=== PATIENT | female | born 1980 | race Caucasian/White ===

== ENCOUNTER 2023-09-06 10:48 | Emergency (ER) | payer OTHER, SELFPAY ==
--- NOTE | ~2023-09-06 | US_ITS ---
EXAMINATION: US pelvic complete w TV DATE: 09/06/2023 17:33 INDICATION: pelvic pain left sided, concerns possible torsion? TECHNIQUE: Multiple transabdominal and endovaginal sonographic images of the pelvis were obtained. COMPARISON: None. FINDINGS: Uterus: 13.5 x 8.1 x 8.5. cm. 5.3 cm uterine fibroid Endometrial complex measures 6 mm. Right Ovary: 2.2 x 1.6 x 1.8 cm. Vascular flow is present. No adnexal mass. Left Ovary: 4.0 x 2.3 x 2.6 cm. Vascular flow is present. Small exophytic ovarian versus paraovarian cysts. Small corpus luteal cyst. There is no free fluid in the pelvis. IMPRESSION: No sonographic evidence of ovarian torsion. 5.3 cm uterine fibroid. Reviewed, dictated and finalized at location K. [employer]
--- NOTE | ~2023-09-06 | CT_ITS ---
EXAMINATION: CT abdomen pelvis w con DATE: 09/06/2023 14:48 INDICATION: llq pain TECHNIQUE: Computed tomography (CT) of the abdomen and pelvis was performed with 100 mL Omnipaque-350 intravenous contrast. Automated exposure control and iterative reconstruction technique were employe d. The dose-length product was 481.51 mGy-cm. COMPARISON: 03/19/2009, report only. FINDINGS: Lower thorax: Unremarkable Liver: Normal. Biliary/Gallbladder: Gallbladder is normal. No bile duct dilation. Pancreas: No mass or duct dilation. Spleen: Normal. Adrenals:No mass. Kidneys: No suspicious mass, obstructing stone, or hydronephrosis. GI tract: Mild distal esophageal and gastric wall edema. No small or large bowel dilation. Status pos t appendectomy Mesentery/Peritoneum: No ascites, mass, or free air. Retroperitoneum: No mass. Pelvis: Enlarged uterus. Heterogeneous 5.3 cm uterine mass, likely fibroid. Exophytic left ovarian cy sts measuring up to 1.9 cm. Left corpus luteal cyst. Small cyst or dominant follicle in the right ova ry. Normal urinary bladder. Soft Tissues: Soft tissues and body wall unremarkable. Bones: No acute osseous finding. IMPRESSION: Mild esophagitis/gastritis. Fibroid uterus. Reviewed, dictated and finalized at location K. [employer]
[2023-09-06 10:56] VITALS: BP 136/97; PULSE 97; RESP 18; TEMP 36.6; O2SAT 98
[2023-09-06 11:12] LABS: Basophils Percent Auto 0.4 % (0.2-1.2); Eosinophils Absolute Auto 0.1 K/mm3 (0-0.3); Eosinophils Percent Auto 1.7 % (0-4.4); Hematocrit 43.7 % (37.0-47.0); Hemoglobin 14.9 g/dL (12.0-15.0); Immature Granulocyte Absolute 0.02 K/mm3 (0.00-0.031); Immature Granulocyte Percent A 0.3 % (0-0.5); Lymphocytes Absolute Auto 2.39 K/mm3 (0.9-3.2); Lymphocytes Percent Auto 33.9 % (18.3-44.2); Mean Corpuscular HGB Conc 34.1 g/dl (32-36); Mean Corpuscular Hemoglobin 32.3 pg (26-34); Mean Corpuscular Volume 94.8 fl (80-100); Mean Platelet Volume 10.1 fl (7.4-10.4); Monocytes Absolute Auto 0.6 K/mm3 (0.1-0.6); Monocytes Percent Auto 9.1 % (2.6-8.5); Neutrophils Absolute Auto 3.9 K/mm3 (1.3-6.7); Neutrophils Percent Auto 54.6 % (45.5-73.1); Platelet Count Result 248 k/mm3 (150-375); Red Blood Count 4.61 M/mm3 (4.2-5.4); Red Cell Distribution Width 12.8 % (11.5-14.5); White Blood Count 7.1 K/mm3 (4.5-10.0)
[2023-09-06 11:21] LABS: Alanine Aminotransferase 41 U/L (6-35); Albumin Level 4.5 g/dL (3.5-5.1); Alkaline Phosphatase 65 U/L (38-126); Anion Gap 7 mmol/L (8-16); Aspartate Amino Transferase 40 U/L (14-36); Bilirubin,Total 0.8 mg/dL (0.2-1.3); Blood Urea Nitrogen 16 mg/dL (7-17); Calcium 9.6 mg/dL (8.4-10.2); Carbon Dioxide 28 mmol/L (22-30); Chloride 104 mmol/L (98-107); Estimated CRCL calculation 62 ml/min; Estimated Glomerular Filt Rate > 60; Glucose 90 mg/dL (65-110); Lipase 129 U/L (23-300); Potassium 4.1 mmol/L (3.4-5.0); Sodium 139 mmol/L (137-145)
[2023-09-06 12:19] LABS: Appearance Urine Cloudy (Clear); Bacteria Urine Rare /hpf; Bilirubin Urine Negative (Negative); Blood Urine Trace (Negative); Color Urine Yellow (Yellow); Glucose Urine UA Negative (Negative); Ketones Urine Negative (Negative); Leukocyte Esterase Ur Negative LEU/UL (Negative); Nitrate Urine Negative (Negative); Non Pathogenic Casts 0-2; Protein Urine Negative (Negative); Specific Grav Ur 1.021 (1.001-1.035); Squamous Epithelial Cell Urine Occasional /hpf (Few); WBC Urine 0-5 /hpf
[2023-09-06 12:24] LABS: Add Urine Microscopic? YES
--- NOTE | 2023-09-06 13:22 | ED.ABDPAIN ---
HPI - Abdominal Pain General Chief Complaint: Abdominal Pain Stated Complaint: Low back/abdominal pain Time Seen by Provider: 09/06/23 13:22 Source: patient Mode of arrival: ambulatory Limitations: no limitations History of Present Illness HPI narrative: patient is a pleasant 43-year-old female without significant past medical history presents emergency department today ambulatory with a steady gait for evaluation of pain to the left lower back/ left abdomen that is been going on about a week and half. She states that heat does help. She has also been taking ibuprofen. Denies any recent fall or injury. Denies any blood in her urine. She states that she has been having urinary frequency but denies any pain with urination. Denies chance of . She does have a history of ovarian cyst she states. Denies any vomiting, diarrhea. She has had mild nausea at times. Denies numbness or tingling to bilateral lower extremities. Denies any history of kidney stones. Related Data Allergies Allergy/AdvReac Type Severity Reaction Status Date / Time amoxicillin Allergy Mild RASH Verified 09/06/23 13:21 Review of Systems Review of Systems: All systems reviewed & are unremarkable except as noted in HPI and below Exam Narrative: GENERAL: Well-appearing, well-nourished, and in no acute distress. HEAD: Normocephalic, atraumatic. EYES: PERRLA and EOMI. ENT: Nares clear, no rhinorrhea or epistaxis. Mucous membranes moist. NECK: Supple. CHEST: Clear to auscultation. No respiratory distress. HEART: Regular rate and rhythm. No murmur heard. Normal peripheral pulses. ABDOMEN: Soft, mild tenderness in the left lower abdomen/pelvic region, nondistended, normal active bowel sounds. BACK: tenderness over left flank region. no erythema/rash. full ROM noted EXTREMITIES: Normal range of motion. No edema. SKIN: Warm, dry, no rash. NEURO: No focal deficits. Alert and oriented x3. CN II-XII grossly intact PSYCH: Normal mood and affect. Course Vital Signs Vital signs: Vital Signs Temperature 97.8 F 09/06/23 10:56 Pulse Rate 97 09/06/23 10:56 Respiratory Rate 18 09/06/23 10:56 Blood Pressure 136/97 H 09/06/23 10:56 Pulse Oximetry 98 09/06/23 10:56 Oxygen Delivery Room Air 09/06/23 10:56 Temperature 97.8 F 09/06/23 15:37 Pulse Rate 79 09/06/23 15:37 Respiratory Rate 16 09/06/23 15:37 Blood Pressure 115/79 09/06/23 15:37 Pulse Oximetry 99 09/06/23 15:37 Oxygen Delivery Room Air 09/06/23 10:56 MDM - Abdominal Pain MDM Narrative Medical decision making narrative: Patient presents for back pain /abdominal pain. Labs, urine and imaging obtained. No kidney stone noted. There is no signs of systemic infection. That obtain ultrasound to rule out any torsion although less likely. The ultrasound does note uterine fibroid which she was aware of as well as left ovarian cyst. She was in no distress while here in the ED. We discussed treating it is musculoskeletal in her back however discussed following up closely. CT did no findings of gastritis. She had no vomiting while here. Patient agreeable to plan of care. Patient is nontoxic in appearance. Stable re-evaluation exam just before discharge. Patient in no acute distress. Vitals within normal limits. Discussed return precautions with the patient including all the red flag signs or symptoms of when to return the patient. The patient verbalized understanding and was agreeable with discharge and close follow-up Differential Diagnosis Differential diagnosis: Likely abdominal pain, calculus of kidney and gastroenteritis Medical Records Attestation: I reviewed the patient's medical records. Lab Data Attestation: I reviewed the patient's lab results. Lab results narrative: stable labs no emergent findings 09/06/23 11:06 09/06/23 11:06 Labs: Lab Results 09/06/23 09/06/23 Range/Units 11:06 11:27 WBC 7.1 (4.5
[2023-09-06 15:37] VITALS: BP 115/79; PULSE 79; RESP 16; TEMP 36.6; O2SAT 99
== END 2023-09-06 18:14 | disposition home or self-care (01) ==
PROVIDERS: Emergency Medicine; Emergency Provider Nurse Practitioner; PCP Family Medicine
DX: D25.9 Leiomyoma of uterus, unspecified (principal); N83.202 Unspecified ovarian cyst, left side; K29.70 Gastritis, unspecified, without bleeding
CPT/HCPCS: 36415; 74177; 76830; 76856; 80053; 81001; 81025; 83690; 85025; 99284; Q9967

== ENCOUNTER 2024-04-04 14:43 | Outpatient (CLI) | payer OTHER, SELFPAY ==
--- NOTE | ~2024-04-04 | MM_ITS ---
EXAMINATION: MM screening lexa BI w dayo HISTORY: Screening TECHNIQUE: Craniocaudal and mediolateral oblique 3-D tomosynthesis images were obtained and synthetic 2-D images were generated. CAD analysis was submitted and interpreted. COMPARISON: No prior mammogram is available for comparison at this institution. BREAST PARENCHYMAL COMPOSITION: Dense: The breasts are extremely dense, which lowers the sensitivity of mammography. FINDINGS: There is no evidence of suspicious mass, calcification, or architectural distortion to sugg est malignancy in either breast. There has been no suspicious interval change. IMPRESSION: 1. No mammographic evidence of malignancy. 2. Recommend routine screening mammography in one year. BI-RADS Category 1: Negative Reviewed, dictated and finalized at location B.
== END 2024-04-04 14:44 | disposition home or self-care (01) ==
LOC: CHSIMG 14:46
PROVIDERS: PCP Family Medicine; Visit Provider Family Medicine
DX: Z12.31 Encounter for screening mammogram for malignant neoplasm of breast (principal)
CPT/HCPCS: 77063; 77067